=== PATIENT | male | born 1975 | race Caucasian/White ===

== ENCOUNTER 2025-02-20 00:09 | Emergency (ER) | payer OTHER, SELFPAY ==
--- OUTSIDE RECORDS SUMMARY | 2022-10-15 06:00 | XMS_ITS | Continuity of Care Document ---
Author Organization [facility] Address [id number] [address] Phone Care Team Providers Care Brine Well Operator Name Role Phone Allen Shelton DDS Unavailable Unavailable Allergies, Adverse Reactions, Alerts Substance Reaction Status Criticality strawberry SwellingAnaphylaxis Active No Infor mation Medications Medication Instructions Dosage Effective Dates (start - stop) Status Comments hydrocodone 5 mg-acetaminophen 325 mg tablet take 1 tablet by oral route every 6 hours as needed for pain 1.00 tablet - Active hydrocodone 5 mg-acetaminophen 325 mg tablet take 1 tablet by oral route every 6 hours as needed for pain 1.00 tablet - No Longer Active Procedures Procedure Date Panoramic Film Bitewings Four Films Intraoral Periapical First Film Intraoral Periapical Each Additional Film Intraoral Periapical Each Additional Film Comprehensive Oral Evaluatio n New Or Established Extraction, Erupted Tooth Or Exposed Delia t (Elevati Extraction, Erupted Tooth Or Exposed Delia t (Elevati Analgesia, Anxiolysis, Inhalation Of Nit kirk Oxide EDR Approval Note Vision [facility] frames purchases Spherocylindr 4.00d/12-2.00d Spherocylindr 4.00d/12-2.00d FITTING OF SPECTACLES REFRACTION Apr-07-2023 Eye Exam New Patient Oral Hygiene Instructions Nutritional Counseling For Control Of De ntal Disea Caries Moderate Risk Exempt From Sealant Measure Limited Oral Evaluation Problem Focused Extraction, Erupted Tooth Or Exposed Delia t (Elevati Extraction, Erupted Tooth Or Exposed Delia t (Elevati EDR Approval Note Advance Directives Directive Yes / No Effective Date File Name No Information Encounters Encounter Description Practice Location Reason(s) For Visit Diagnoses Date Provider Providers Copied on Encounter [facility], [id number]- [place], [place], [id number], [place] tel:[phone] [facility] No Information [address]. [address] [place], [address], [place]. tel:[phone] Referring Provider: Allen Shelton, [address] [place], [address]. tel:[phone] [facility], [id number]- [place], [place], [id number], [place] tel:[phone] Vision F1 Encounter for fit/adjst of spectacles and contact lenses 3 Felix Rivera. [address] [place], [address], [place]. tel:[phone] Referring Provider: Nicole Washington, [address] [place], [address]. tel:[phone] [facility], [id number]- [place], [place], [id number], [place] tel:[phone] Vision F1 blurry vision (chief complaint) Myopia, bilateralRegular astigmatism, bilateralPresbyopia 3 Felix Rivera. [address] [place], [address], [place]. tel:[phone] Referring Provider: Nicole Washington, [address] [facility] [place], [address]. tel:[phone] [facility], [id number]- [facility], [facility], [place], [id number], [place] tel:[phone] [facility] Encounter for dental exam and cleaning w/o abnormal findings 3 Cat Villa. [address] [place] [facility] [place] [facility], [address], [place]. [phone] Referring Provider: Allen Shelton, [address] [facility], [address]. tel:[phone] Family History Family Member Type Diagnosis Age At Onset No Information Payers Payer name Insurance type Covered green party ID Aurelia post(s) D [employer] CI [id number] Social History Type Description Quantity Date Captured Comments Alcohol Use Details No Caffeine Use Details Unknown Tobacco Use Status Cigarette smoker Smoking Status Current every day smoker Smoking Tobacco Use Details Cigarette: Age Started: 7 Cigarette: Pack Year: 1 Sex Male Sexual Orientation Heterosexual Gender Identity Male Chief Complaint And Reason For Visit No Information Reason For Referral Reason For Referral No Information Plan Of Treatment Date Type Action Status Goal Tobacco cessation counseling completed Goal Tobacco cessation counseling completed History Of Present Illness Encounter Date Complaint History Of Prese nt Illness blurry vision Last EE exam man y years ago. Distance vision trouble. Headaches twice a week depending on how long pt has been squinting throughout the day. Floaters occasionally. No family history of glaucoma. Functional Status Date Functional Assessmen t No Information Instructions Date Instruction Additional Infor mation Lifestyle education Related to D ental Examination Impression/Plan Lifestyle education Related to D ental Examination Assessments Type Assessment Date No Information Patient Care Teams Name Effective Dates (start - stop) Status Members No Information
[2025-02-20 00:14] VITALS: BP 166/95; PULSE 105; RESP 18; TEMP 36.7; O2SAT 98
[2025-02-20 01:32] VITALS: BP 140/101; PULSE 100; RESP 18; O2SAT 97
[2025-02-20 02:06] LABS: Hematocrit 43.0 % (42.0-52.0); Hemoglobin 14.6 g/dL (14.0-18.0); Immature Granulocyte Percent A 0.4 % (0-0.5); Lymphocytes Absolute Auto 2.98 K/mm3 (0.9-3.2); Mean Corpuscular HGB Conc 34.0 g/dl (32-36); Mean Corpuscular Hemoglobin 28.6 pg (26-34); Mean Corpuscular Volume 84.3 fl (80-100); Nucleated Red Blood Cells Absolute Auto 0.000 K/mm3 (0.0-0.012); Nucleated Red Blood Cells Perc 0.0 % (0.0-0.2); Platelet Count Result 341 k/mm3 (150-375); Red Blood Count 5.10 M/mm3 (4.6-6.20); White Blood Count 10.2 K/mm3 (4.5-10.0)
[2025-02-20] MEDS: CLINDAMYCIN 600 MG/D5W 50 ML 600 MG/50 ML PIGGYBACK 100 MG IVPB (02:18)
[2025-02-20 02:24] LABS: Anion Gap 10 mmol/L (4-12); Blood Urea Nitrogen 25 mg/dL (9-20); Calcium 9.2 mg/dL (8.4-10.2); Carbon Dioxide 22 mmol/L (22-30); Chloride 106 mmol/L (98-107); Estimated CRCL calculation 117 ml/min; Estimated Glomerular Filt Rate > 60; Glucose 128 mg/dL (65-110); Potassium 3.5 mmol/L (3.4-5.0); Sodium 138 mmol/L (137-145)
[2025-02-20 02:51] VITALS: BP 164/92; PULSE 88; RESP 18; O2SAT 98
--- NOTE | 2025-02-20 06:20 | ED_ITS ---
HPI - Wound/Laceration General Chief Complaint: Wound/Laceration Stated Complaint: spider bite Time Seen by Provider: 02/20/25 01:41 History of Present Illness HPI narrative: Patient presents here due to a spider bite to his left lower leg he noticed 1-2 weeks ago, has been popping on his own and applying antibiotic ointment, but the redness is spreading so finally came in. No systemic symptoms including no fevers or chills or nausea or vomiting Related Data Allergies Allergy/AdvReac Type Severity Reaction Status Date / Time strawberry Allergy Severe Anaphylaxis Verified 02/20/25 00:18 Review of Systems 2 Review of Systems: All systems reviewed & are unremarkable except as noted in HPI and below Exam 2 Narrative: EXAMINATION OF ORGAN SYSTEMS/BODY AREAS: Constitutional: Vital signs per nursing GENERAL:[No acute distress, non-toxic appearing.] HEAD: Normal with no signs of head trauma. EYES: EOMI, conjunctiva normal ENT: Hearing grossly intact LUNGS: Nonlabored breathing. HEART: [Regular rate and rhythm] ABD: [Soft], [nontender to palpation] EXT: Normal range of motion SKIN: Erythematous area that is slightly tender and indurated surrounding an area of ulcer no exquisite tenderness or crepitus NEURO: [Alert and oriented x 3. No gross focal sensory or strength deficits.] PSYCH: Normal affect Course Vital Signs Vital signs: Vital Signs Temperature 98.0 F 02/20/25 00:14 Pulse Rate 105 H 02/20/25 00:14 Respiratory Rate 18 02/20/25 00:14 Blood Pressure 166/95 H 02/20/25 00:14 Pulse Oximetry 98 02/20/25 00:14 Oxygen Delivery Room Air 02/20/25 00:14 Temperature 98.0 F 02/20/25 00:14 Pulse Rate 88 02/20/25 02:51 Respiratory Rate 18 02/20/25 02:51 Blood Pressure 164/92 H 02/20/25 02:51 Pulse Oximetry 98 02/20/25 02:51 Oxygen Delivery Room Air 02/20/25 00:14 MDM - Wound/Laceration MDM Narrative Medical decision making narrative: MEDICAL DECISION MAKING AND COURSE IN THE ED WITH INTERPRETATION/REVIEW OF DIAGNOSTIC STUDIES: Electronic medical record was reviewed. Patient presented to the ED with complaint of painful skin rash. Vitals [were within acceptable limits]. Physical exam revealed area of tenderness and induration consistent with cellulitis, no fluctuance. [Given the slight tachycardia, I will obtain labs here. CBC with only minimally elevated white count, normal lactic.] [Patient was given clindamycin here and a course to continue at home.] The patient is discharged home in stable condition. I have asked the patient to return to the emergency department for worsening pain, worsening and increasing size of skin infection, fevers/chills. The patient is instructed to follow up with [PCP] in 3-4 days. Patient verbalized understanding. Lab Data 02/20/25 01:57 02/20/25 01:56 Labs: Lab Results 02/20/25 02/20/25 Range/Units 01:56 01:57 WBC 10.2 H (4.5-10.0) K/mm3 RBC 5.10 (4.6-6.20) M/mm3 Hgb 14.6 (14.0-18.0) g/dL Hct 43.0 (42.0-52.0) % MCV 84.3 (80-100) fl MCH 28.6 (26-34) pg MCHC 34.0 (32-36) g/dl RDW 12.8 (11.5-14.5) % Plt Count 341 (150-375) k/mm3 MPV 9.4 (7.4-10.4) fl Immature Gran % (Auto) 0.4 (0-0.5) % Neut % (Auto) 59.8 (45.5-73.1) % Lymph % (Auto) 29.3 (18.3-44.2) % [place] % (Auto) 6.1 (2.6-8.5) % Eos % (Auto) 2.9 (0-4.4) % Baso % (Auto) 1.5 H (0.2-1.2) % Lymph # (Auto) 2.98 (0.9-3.2) K/mm3 [place] # (Auto) 0.6 (0.1-0.6) K/mm3 Eos # (Auto) 0.3 (0-0.3) K/mm3 Baso # (Auto) 0.2 H (0.0-0.1) K/mm3 Abs Immat Gran (auto) 0.04 H (0.00-0.031) K/mm3 Absolute Neuts (auto) 6.1 (1.3-6.7) K/mm3 Absolute Nucleated RBC 0.000 (0.0-0.012) K/mm3 Nucleated RBC % 0.0 (0.0-0.2) % Sodium 138 (137-145) mmol/L Potassium 3.5 (3.4-5.0) mmol/L Chloride 106 (98-107) mmol/L Carbon Dioxide 22 (22-30) mmol/L Anion Gap 10 (4-12) mmol/L BUN 25 H (9-20) mg/dL Creatinine 0.93 (0.7-1.3) mg/dL Estim Creat Clear Calc 117 ml/min Estimated GFR > 60 (59 - ) Glucose 128 H (65-110) mg/dL Lactic Acid 1.8 (0.7-2.0) mmol/L Calcium 9.2 (8.4-10.2) mg/dL Discharge Plan Discharge Clinical Impression: Cellulitis Patient Disposition: Home Condition: Stable Instructions: Cellulitis (ED) Additional Instructions: Please follow up with your doctor for wound recheck in the next 3-4 days. If you start having fevers or chills, if the redness spreads or gets worse, or anything else concerning, come back to the emergency room please. Patient Language: [place] Prescriptions: New clindamycin HCl [Cleocin HCl] 150 mg capsule 450 mg PO Q6H 7 Days Qty: 84 0RF Follow-up/Referrals: PHYSICIAN,DRY GOODS CLERK [Primary Care Provider, Internal Medicine]
== END 2025-02-20 02:52 | disposition home or self-care (01) ==
PROVIDERS: Emergency Provider Emergency Medicine
DX: L03.116 Cellulitis of left lower limb (principal)
CPT/HCPCS: 36415; 80048; 83605; 85025; 87040; 96365; 99284